=== PATIENT | female | born 1965 | race African-American/Black ===

== ENCOUNTER 2020-03-25 02:55 | Emergency (ER) | payer OTHER ==
[~2020-03-25] VITALS: Ht 154.9 cm; Wt 94.8 kg
[2020-03-25] MEDS ORDERED: PROAIR HFA8.5 GM INH (03:16)
[2020-03-25] MEDS ORDERED: METFORMIN HCL500 M3 PO (03:16)
[2020-03-25 03:56] LABS: BASOPHILS 0.5 % (0.0-2.0); EOSINOPHILS 2.7 % (0.0-3.0); HEMATOCRIT 36.1 % (37.0-47.0); HEMOGLOBIN 11.7 gm/dL (12.0-15.0); LYMPHOCYTES 49.6 % (24.0-44.0); MCH 27.7 pg (26.0-34.0); MCHC 32.3 g/dL (28.0-37.0); MCV 85.7 fL (80.0-100.0); MONOCYTES 7.7 % (1.0-8.0); PLATELET COUNT 265 thou/uL (150-400); POLYS 39.5 % (36.0-66.0); RBC 4.21 mil/uL (4.20-5.00); RDW 13.9 % (10.5-14.5)
[2020-03-25 03:58] LABS: CALCIUM 9.1 mg/dL (8.5-10.1); CREATININE 0.9 mg/dL (0.6-1.0)
[2020-03-25 03:59] LABS: MAGNESIUM 1.7 mg/dL (1.8-2.4)
[2020-03-25] MEDS ORDERED: PROMETHAZINE-C473 ML PO (04:24)
[2020-03-25 05:00] VITALS: BP 155/95
== END 2020-03-25 05:00 | disposition home or self-care (01) ==
LOC: ER 02:55
PROVIDERS: Emergency Medicine
DX: R05 Cough (principal); J45.909 Unspecified asthma, uncomplicated; Z79.899 Other long term (current) drug therapy; Z20.828 Contact with and (suspected) exposure to other viral communicable diseases